=== PATIENT | female | born 1990 | race Caucasian/White ===

== ENCOUNTER 2017-12-03 21:46 | Emergency (ER) | payer OTHER ==
[~2017-12-03] VITALS: Ht 160 cm; Wt 62.1 kg
[2017-12-04 00:54] LABS: BASOPHIL % 0.5 % (0-2); PLATELET COUNT 232 x10^3mcL (130-400); RED CELL DISTRIBUTION WIDTH 12.5 % (11.5-14.5)
[2017-12-04 00:55] LABS: CALCIUM 8.4 mg/dL (8.5-10.1); CARBON DIOXIDE 27.5 mmol/L (21-32); CHLORIDE SERUM 107 mmol/L (98-107); CREATININE SERUM 0.9 mg/dL (0.6-1.0); GFR1 > 60 mL/min; GLUCOSE SERUM 97 mg/dL (74-106); POTASSIUM SERUM 3.7 mmol/L (3.5-5.1); SODIUM SERUM 141 mmol/L (136-145)
[2017-12-04 00:59] LABS: ALKALINE PHOSPHATASE 148 U/L (46-116); ALT/SGPT 29 U/L (14-59); AST/SGOT 26 U/L (15-37); BILIRUBIN TOTAL 0.22 mg/dL (0.20-1.00); LIPASE 134 IU/L (73-393); TOTAL PROTEIN, SERUM 6.8 g/dL (6.4-8.2)
[2017-12-04 05:16] VITALS: BP 120/85
== END 2017-12-04 05:16 | disposition home or self-care (01) ==
LOC: ED 21:46
PROVIDERS: Emergency Medicine
DX: N76.0 Acute vaginitis (principal); N73.9 Female pelvic inflammatory disease, unspecified; Z88.2 Allergy status to sulfonamides
CPT/HCPCS: 87491; 87591; J0696; J2270; J2405; J7030; Q0162; Q9967

== ENCOUNTER 2018-05-19 05:28 | Emergency (ER) | payer OTHER ==
[~2018-05-19] VITALS: Ht 157.5 cm; Wt 58.0 kg
[2018-05-19 05:40] VITALS: Ht 157.5 cm; Wt 58.0 kg
[2018-05-19 07:29] VITALS: BP 131/65
== END 2018-05-19 07:29 | disposition home or self-care (01) ==
LOC: ED 05:28
DX: J02.9 Acute pharyngitis, unspecified (principal); Z88.2 Allergy status to sulfonamides; Z88.8 Allergy status to other drugs, medicaments and biological substances
CPT/HCPCS: J1100

== ENCOUNTER 2018-09-14 12:46 | Emergency (ER) | payer OTHER ==
[~2018-09-14] VITALS: Ht 157.5 cm; Wt 59.0 kg
[2018-09-14 12:52] VITALS: BP 122/71; Ht 157.5 cm; Wt 59.0 kg
[2018-09-14 13:45] LABS: PLATELET COUNT 306 x10^3mcL (130-400); RED CELL DISTRIBUTION WIDTH 12.9 % (11.5-14.5)
[2018-09-14 14:06] LABS: ATYPICAL LYMPH 3 %; BAND NEUTROPHIL 2 % (0-10); BASOPHIL 0 % (0-2); MONOCYTE 5 % (0-7); SEGMENTED NEUTROPHILS 87 % (37-75)
[2018-09-14 14:07] LABS: PLATELET MORPHOLOGY PLATELETS NORMAL; rbc morphology (normal/abnorm) ABNORMAL (NORMAL)
== END 2018-09-14 15:47 | disposition home or self-care (01) ==
LOC: ED 12:46
PROVIDERS: Emergency Medicine
DX: O20.0 Threatened abortion (principal); O26.891 Other specified pregnancy related conditions, first trimester; B34.9 Viral infection, unspecified; Z88.2 Allergy status to sulfonamides; Z88.1 Allergy status to other antibiotic agents
CPT/HCPCS: 36415

== ENCOUNTER 2018-11-27 12:14 | Emergency (ER) | payer OTHER ==
[2018-11-27 13:08] LABS: BASOPHIL % 0.1 % (0-2); PLATELET COUNT 274 x10^3mcL (130-400); RED CELL DISTRIBUTION WIDTH 13.3 % (11.5-14.5)
[2018-11-27 13:13] LABS: CALCIUM 8.8 mg/dL (8.5-10.1); CARBON DIOXIDE 28.1 mmol/L (21-32); CHLORIDE SERUM 103 mmol/L (98-107); CREATININE SERUM 0.7 mg/dL (0.6-1.0); GFR1 > 60 mL/min; GLUCOSE SERUM 117 mg/dL (74-106); POTASSIUM SERUM 3.5 mmol/L (3.5-5.1); SODIUM SERUM 139 mmol/L (136-145)
[2018-11-27 13:17] LABS: ALKALINE PHOSPHATASE 88 U/L (46-116); ALT/SGPT 28 U/L (14-59); AST/SGOT 28 U/L (15-37); BILIRUBIN TOTAL 0.38 mg/dL (0.20-1.00); LIPASE 122 IU/L (73-393); TOTAL PROTEIN, SERUM 7.3 g/dL (6.4-8.2)
[2018-11-27 13:18] LABS: ALBUMIN 2.9 g/dL (3.4-5.0)
[2018-11-27 16:17] VITALS: BP 108/78
== END 2018-11-27 16:18 | disposition home or self-care (01) ==
LOC: ED 12:14
PROVIDERS: Emergency Medicine
DX: O99.612 Diseases of the digestive system complicating pregnancy, second trimester (principal); K52.9 Noninfective gastroenteritis and colitis, unspecified; Z3A.16 16 weeks gestation of pregnancy; Z88.2 Allergy status to sulfonamides; Z88.1 Allergy status to other antibiotic agents
CPT/HCPCS: J2765; J7030